=== PATIENT | female | born 1995 | race Caucasian/White ===

== ENCOUNTER 2018-11-23 22:46 | Emergency (ER) | payer SELFPAY ==
[2018-11-23 23:09] VITALS: BP 128/71; TEMP 98.6; BMI 28.3
--- NOTE | 2018-11-23 23:33 | PDOC ---
History of Present Illness - General Chief Complaint: Pain Stated Complaint: RT ABD PAIN Time Seen by Provider: 11/23/18 23:18 - History of Present Illness Initial Comments: 11/23/18 23:28 23yo F no PMH presents from home c/o 2hrs sudden onset at rest sharp RLQ pain nonradiating constant, not better or worse with anything, no pain medications tried, atraumatic. Never sexually active, no agricultural services director, never had a pelvic exam, no PCP. LMP 2 weeks ago but then appears to have started again today, endorses vaginal bleeding filling 1 normal pad today with 1 blood clot, bleeding appears similar to other menses but pt has always had menses 4wks apart. Pt has never had cramping or pain with menses. Denies vaginal discharge, genital rash or irritation, fever, chills, fatigue, headache, dizziness, numbness/tingling, weakness, vision changes, shortness of breath, cough, chest pain, palpitations, leg swelling, blood in stool, diarrhea, constipation, dysuria, hematuria, confusion, sick contacts, recent travel. Past History - Past Medical History Allergies/Adverse Reactions: Allergies Allergy/AdvReac Type Severity Reaction Status Date / Time No Known Allergies Allergy Verified 11/24/18 00:41 - Psycho Social/Smoking Cessation Hx Smoking History: Never smoked Review of Systems - Review of Systems Comments:: 11/24/18 02:19 Constitutional: Negative for chills, fever, fatigue, diaphoresis. HENT: Negative for sore throat, rhinorrhea, congestion. Eyes: Negative for visual disturbance. Respiratory: Negative for shortness of breath, cough, and wheezing. Cardiovascular: Negative for chest pain, palpitations, and leg swelling. Gastrointestinal: Positive for abdominal pain, nausea, vomiting. Negative for abdominal pain, blood in stool, constipation, diarrhea. Genitourinary: Positive for vaginal bleeding. Negative for dysuria, flank pain, and hematuria. Musculoskeletal: Negative for myalgias, back pain, and neck pain. Skin: Negative for rash. Neurological: Negative for light-headedness, dizziness, vertigo, syncope, weakness, numbness and headaches. Psychiatric/Behavioral: Negative for behavioral problems and confusion. *Physical Exam - Vital Signs Last Vital Signs Temp Pulse Resp BP Pulse Ox 98.6 F 85 19 128/71 96 11/23/18 23:05 11/23/18 23:05 11/23/18 23:05 11/23/18 23:05 11/23/18 23:05 - Physical Exam Comments: 11/24/18 02:19 Gen: Alert, NAD, comfortable-appearing. HEENT: PERRL, EOMI, MMM, NCAT. No conjunctival pallor. Sclera are non-icteric. CV: Regular rate and rhythm. No murmurs, rubs, or gallops. PULM: No resp distress. CTAB, no wheezes, rales, or rhonchi. ABD: +RLQ TTP, +slight rebound tenderness, soft, ND, no guarding, no CVA tenderness. BACK: No TTP of c/t/l-spine. No step-offs or deformities. MSK: No bony deformities. 2+ pulses in all extremities. NEURO: AAOx3. PERRL. No gross CN deficits. Strength and sensation grossly intact throughout. EXTREMITIES: No cyanosis. No clubbing. No edema. No calf tenderness. PSYCH: Normal mood and thought pattern. SKIN: Warm and dry. Normal capillary refill. No rashes. No jaundice ED Treatment Course - LABORATORY CBC & Chemistry Diagram: 11/24/18 00:35 11/24/18 00:35 Medical Decision Making - Medical Decision Making 11/23/18 23:28 23yo F no PMH presents from home c/o 2hrs sudden onset at rest sharp RLQ pain nonradiating constant, not better or worse with anything, no pain medications tried, atraumatic. Never sexually active, no agricultural services director, never had a pelvic exam, no PCP. LMP 2 weeks ago but then appears to have started again today, endorses vaginal bleeding filling 1 normal pad today with 1 blood clot, bleeding appears similar to other menses but pt has always had menses 4wks apart. Pt has never had cramping or pain with menses. Denies vaginal discharge, genital rash or irritation, fever, chills, fatigue, headache, dizziness, numbness/tingling, weakness, vision changes, shortness of breath, cough, chest pain, palpitations, leg swelling, blood in stool, diarrhea, constipation, dysuria, hematuria, confusion, sick contacts, recent travel. Hemodynamically stable, afebrile, +RLQ pain and TTP with slight rebound tenderness. Concern for R ovarian pathology such as ovarian torsion or ruptured ovarian cyst - r/o with TVUS. No concern for ectopic at this time due to virginity - obtain UPreg and reconsider if positive. No concern for STIs or PID at this time due to lack of vaginal discharge or irritation and virginity. RLQ pain and TTP also concerning for appendicitis or other GI pathology - r/o with labs and CTAP. Also consider other infectious etiologies such as UTI, anemia, or metabolic derangements - r/o with labs. -CBC, CMP, Lipase, UA/UC/UPreg -Tylenol for pain -TVUS, CTAP w/IV contrast -Dispo: pending w/u and reassessment 11/23/18 23:58 Tylenol given. US cannot do transvaginal due to virginity. Cannot see R ovary transabdominally - will give IVF and try again. US will assess for appendicitis now. 11/24/18 02:10 Pt feeling better s/p tylenol. Labs reviewed. Of note, WBC 13.9. 11/24/18 02:[address] Hall. Pending urine, US read, and CTAP to r/o ovarian pathology and appendicitis. Discharge - Follow up/Referral Referrals: ON STAFF,NOT [Primary Care Provider] - - Patient Discharge Instructions - Post Discharge Activity
[2018-11-23] MEDS ORDERED: ACETAMINOPHEN 500 MG TABLET (FP) PO ONE (23:45)
[2018-11-23] MEDS ORDERED: ACETAMINOPHEN 325 MG TABLET (FP) ONE (23:47)
[2018-11-23] MEDS ORDERED: SODIUM CHLORIDE 0.9% 500 ML INFUS.BAG IV ONE ×2 (23:55→23:56)
[2018-11-24 01:06] LABS: BILIRUBIN,TOTAL 0.3 mg/dL (0.2-1); BLOOD UREA NITROGEN 12.3 mg/dL (7-18); CALCIUM 9.3 mg/dL (8.5-10.1); CREATININE 0.8 mg/dL (0.55-1.3); POTASSIUM 3.9 mmol/L (3.5-5.1); TOT PROT 7.9 g/dl (6.4-8.2)
[2018-11-24 01:36] LABS: BASO % 0.6 % (0-2.0); EOS % 0.1 % (0-4.5); HEMATOCRIT 39.2 % (32.4-45.2); HEMOGLOBIN 13.2 GM/dL (10.7-15.3); LYMPH % 13.4 % (8-40); MCH 29.1 pg (25.7-33.7); MCHC 33.6 g/dl (32.0-36.0); MEAN CELL VOLUME 86.4 fl (80-96); MEAN PLT VOLUME 8.6 fl (7.5-11.1); MONO % 4.6 % (3.8-10.2); NEUT % 81.3 % (42.8-82.8); PLATELET COUNT 338 K/MM3 (134-434); RBC 4.54 M/mm3 (3.60-5.2); RDW 13.4 % (11.6-15.6); WHITE BLOOD COUNT 13.9 K/mm3 (4.0-10.0)
--- NOTE | 2018-11-24 01:58 | PDOC ---
Documentation entered by Gabby Lara SCRIBE, acting as scribe for Yesica Mirza MD. Yesica Mirza MD: This documentation has been prepared by the Jane landaverde Brenda, SCRIBE, under my direction and personally reviewed by me in its entirety. I confirm that the documentation accurately reflects all work, treatment, procedures, and medical decision making performed by me. Attending Attestation - Resident Resident Name: Katherine Estevez - ED Attending Attestation I have performed the following: I have examined & evaluated the patient, The case was reviewed & discussed with the resident, I agree w/resident's findings & plan, Exceptions are as noted - HPI HPI: 11/24/18 01:47 The patient is a 23 year old female with no significant past medical history who presents to the ED with an acute onset of right lower quadrat pain. Patient denies ever having been sexually active. - Physicial Exam PE: 11/24/18 01:49 GENERAL: Well-appearing, well-nourished. No apparent distress. HEENT: Normocephalic, atraumatic. PERRL, EOM intact. CARDIOVASCULAR: Normal S1, S2. Regular rate and rhythm. PULMONARY: Clear to auscultation bilaterally. ABDOMEN: RLQ tenderness++ EXTREMITIES: Normal ROM in all four extremities. No gross deformities. SKIN: Warm, dry. No rash NEUROLOGICAL: No focal neurological deficits. 11/24/18 02:27 - Medical Decision Making 11/24/18 02:28 pelvic US: possibly ruptured ovarian cyst 23 yo female with RLQ pain associated with nausea that started today cbc 13,900 awaiting preg test then ct scan abd/pel to r/o appendicitis
[2018-11-24 03:34] LABS: EPI CELLS 2.3 /HPF (0-5/HPF); HYALINE CASTS 1 /lpf (0-8); PH,URINE 6.5 (5.0-8.0); URINE APPEARANCE CLEAR; URINE BACTERIA 44.4 /hpf (NEGATIVE); URINE BILIRUBIN NEGATIVE (NEGATIVE); URINE COLOR YELLOW; URINE GLUCOSE (UA) NEGATIVE (NEGATIVE); URINE KETONE NEGATIVE (NEGATIVE); URINE LEUK ESTERASE NEGATIVE (NEGATIVE); URINE NITRITE NEGATIVE (NEGATIVE); URINE PROTEIN TRACE (NEGATIVE); URINE RBC 207 /hpf (0-4); URINE UROBILINOGEN 0.2 mg/dL (0.2-1.0); URINE WBC 3 /hpf (0-5)
--- NOTE | 2018-11-24 04:59 | PDOC ---
*Physical Exam - Vital Signs Last Vital Signs Temp Pulse Resp BP Pulse Ox 98.6 F 85 19 128/71 96 11/23/18 23:05 11/23/18 23:05 11/23/18 23:05 11/23/18 23:05 11/23/18 23:05 ED Treatment Course - LABORATORY CBC & Chemistry Diagram: 11/24/18 00:35 11/24/18 00:35 - ADDITIONAL ORDERS Additional order review: Laboratory Results 11/24/18 11/24/18 11/24/18 02:16 02:16 00:35 Sodium Potassium Chloride Carbon Dioxide Anion Gap BUN Creatinine Est GFR (CKD-EPI)AfAm Est GFR (CKD-EPI)NonAf Random Glucose Calcium Total Bilirubin AST ALT Alkaline Phosphatase Total Protein Albumin Lipase 95 Urine Color Yellow Urine Appearance Clear Urine pH 6.[address] 1.019 Urine Protein Trace Urine Glucose (UA) Negative Urine Ketones Negative Urine Blood 3+ H Urine Nitrite Negative Urine Bilirubin Negative Urine Urobilinogen 0.2 Ur Leukocyte Esterase Negative Urine WBC (Auto) 3 Urine RBC (Auto) 207 Urine Casts (Auto) 1 U Epithel Cells (Auto) 2.3 Urine Bacteria (Auto) 44.4 Urine HCG, Qual Negative 11/24/18 00:35 Sodium 141 Potassium 3.9 Chloride 107 Carbon Dioxide 25 Anion Gap 9 BUN 12.3 Creatinine 0.8 Est GFR (CKD-EPI)AfAm 120.44 Est GFR (CKD-EPI)NonAf 103.92 Random Glucose 146 H Calcium 9.3 Total Bilirubin 0.3 AST 17 ALT 38 Alkaline Phosphatase 96 Total Protein 7.9 Albumin 4.0 Lipase Urine Color Urine Appearance Urine pH Ur Specific State [address] Urine Protein Urine Glucose (UA) Urine Ketones Urine Blood Urine Nitrite Urine Bilirubin Urine Urobilinogen Ur Leukocyte Esterase Urine WBC (Auto) Urine RBC (Auto) Urine Casts (Auto) U Epithel Cells (Auto) Urine Bacteria (Auto) Urine HCG, Qual 11/24/18 00:35 RBC 4.54 MCV 86.4 MCHC 33.6 RDW 13.4 MPV 8.6 Neutrophils % 81.3 Lymphocytes % 13.4 Monocytes % 4.6 Eosinophils % 0.1 Basophils % 0.6 Medical Decision Making - Medical Decision Making 11/24/18 05:09 Sign out received from Dr. Briseno. 23F with no PMH p/w acute onset RLQ pain. Pending - US read for r/o torsion vs ovarian cyst, CT A/P for r/o appendicitis --- US - R sided hemorrhagic ovarian cyst noted. Likely cause of abdominal pain. CT A/P to r/o appendicitis 11/24/18 06:02 CT read pending 11/24/18 06:23 CT notable for teratoma. As Ms. Bower does not live in [place] and will return to [place] this , will provide disk with CT, CT read, and [place] shorthand reporter follow up along with careful return precautions to ED. Plan for shorthand reporter consult, then discharge. Call placed to shorthand reporter. 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 Your blood work was normal. We found a large right sided ovarian teratoma. Teratomas are ovarian masses that are often benign, but need to be worked up further by your shorthand reporter as it will likely need to be removed surgically. We are giving you a referral to an shorthand reporter here in [place] if you would like to follow up with one here before your return to [place]. Please make sure to follow up as soon as possible, within the next seven days. Please return to the emergency department if your pain worsens or if you develop any other symptoms that become concerning to you. - Post Discharge Activity
[2018-11-24 06:56] VITALS: PULSE 86
== END 2018-11-24 07:00 | disposition home or self-care (01) ==
LOC: JER 22:46
DX: D27.0 Benign neoplasm of right ovary (principal)
CPT/HCPCS: 36415; 74177-TC; 76856-TC; 80053; 81003; 83690; 84703; 85025; 87086; 99283-25